=== PATIENT | male | born 1955 | race Caucasian/White ===

== ENCOUNTER 2018-03-22 13:30 | Inpatient (IN) | payer BC ==
[2018-03-27] MEDS ORDERED: ACETAMINOPHEN 1,000 MG/100 ML BTL IV ONE (06:00)
[2018-03-27] MEDS ORDERED: FAMOTIDINE 20MG TABLET PO ONE (06:00)
[2018-03-27] MEDS ORDERED: METOCLOPRAMIDE 10 MG TABLET PO ONE (06:00)
[2018-03-27] MEDS ORDERED: MECLIZINE 25 MG TABLET PO ONE (06:00)
[2018-03-27] MEDS ORDERED: CEFAZOLIN 2 Gram 2 GM/50 ML BAG IVPB ONE (06:00)
[2018-03-27] MEDS ORDERED: MAGNESIUM HYDROXIDE 30 ML UDC PO PRN (12:15)
[2018-03-27] MEDS ORDERED: TRAMADOL HCL 50 MG TABLET PO PRN (12:15)
[2018-03-27] MEDS ORDERED: ONDANSETRON HCL IV 4 MG/2 ML VIAL IVP PRN (12:15)
[2018-03-27] MEDS ORDERED: METOCLOPRAMIDE HCL 10 MG/2 ML VIAL IVP PRN (12:15)
[2018-03-27] MEDS ORDERED: DIPHENHYDRAMINE HCL 25 MG CAPSULE PO PRN (12:15)
[2018-03-27] MEDS ORDERED: AL HYDROX/MAG HYDROX 30ML UD PO PRN (12:15)
[2018-03-27] MEDS ORDERED: HYDROMORPHONE HCL 2 MG/ML VIAL IV PRN (12:15)
[2018-03-27] MEDS ORDERED: SENNOSIDES/DOCUSATE SODIUM UD CAPSULE PO PRN (12:15)
[2018-03-27] MEDS ORDERED: ZOLPIDEM TARTRATE 5 MG TABLET PO PRN (12:15)
[2018-03-27] MEDS ORDERED: OXYCODONE HCL 5 MG TABLET PO PRN (12:17)
[2018-03-27] MEDS ORDERED: RINGERS SOLUTION,LACTATED 1,000 ML IV PRN (12:27)
[2018-03-27] MEDS: OXYCODONE HCL 5 MG TABLET PO PRN ×3 (12:54→22:00)
[2018-03-27] MEDS: NICOTINE14 MG/24 HOUR PATCH TD SCH (12:57)
[2018-03-27] MEDS: RINGERS SOLUTION,LACTATED 1,000 ML IV SCH (13:20)
[2018-03-27] MEDS ORDERED: TRANEXAMIC ACID 1,000 MG in 0.9 % SODIUM CHLORIDE 100ML 100 ML IVPB ONE (15:00)
--- NOTE | 2018-03-27 15:10 | Operative Note ---
DATE OF SURGERY: 03/27/2018 Surgeon: Timbo Marino DO PREOPERATIVE DIAGNOSIS: Osteoarthritis of the left knee. POSTOPERATIVE DIAGNOSIS: Osteoarthritis of the left knee. OPERATION: Left total knee arthroplasty. DESCRIPTION OF PROCEDURE: This 62-year-old male was taken to the operating room and placed in the supine position on the operating room table. Spinal anesthesia was induced and the left lower extremity was elevated. It was prepped with Hibiclens and draped in the usual sterile fashion. It was exsanguinated and the tourniquet inflated to 300 mmHg. An anterior longitudinal midline incision was made followed by a medial parapatellar arthrotomy incision. An intracondylar drill hole was made for the intramedullary alignment crispin and a 10 mm 6-degree valgus cut was made in the distal femur. A sizing jig was affixed and a size 67.5 was seen to be the appropriate size. The 4-in-1 cutting block was then pinned in 3 degrees of external rotation and the appropriate cuts were made. The wafers of bone were removed. We then directed our attention to the proximal tibia, and an extramedullary alignment guide was used to cut the proximal tibia referencing a 10 mm cut off the lateral tibial plateau. Once the extramedullary alignment guide had been set and the block pinned in the appropriate position, a 3-degree posterior slope cut was made on the proximal tibia, and the wafers of bone were removed. Remnants of the menisci and osteophytes were removed from the posterior aspect of the joint. We did end up removing an additional 2 mm of bone from the proximal tibia because of some bone loss present. The patient had rather significant sclerosis of subchondral bone underneath the medial tibial plateau, and drill holes were made for penetration of the cement. The wound was copiously irrigated with lactated Ringer's solution and trial components were inserted; a 67.5 cruciate retaining femur, a 75 tibia, an 11 mm anterior stabilized bearing, and a 37 x 8.6 mm patella was used for trialing. The patella 37 x 8.6 restored the patella to anatomic height. The knee was taken through range of motion and excellent stability of the components was identified. All the trial components were then removed and the wound copiously irrigated with pulse lavage lactated Ringer's solution. Exparel was injected into the posterior, medial, and lateral corners of the joint. After insertion of all components, the remainder was injected into the periosteum and joint capsule of the proximal tibia and distal femur. The wound was irrigated and suctioned. All bony surfaces were dried. All components were cemented into place. Excess cement removed after the insertion of each component. Initially, the tibial baseplate was placed followed by insertion of the tibial bearing, femoral component, and finally the patella. Once the cement had hardened, the knee was again taken through range of motion with excellent stability of the components being identified. The wound was again irrigated with lactated Ringer's solution and a drain placed through a separate stab incision. The arthrotomy incision closed with #2 Vicryl, the subcutaneous tissue closed with 0 Vicryl, and the skin was stapled. Sterile dressings with a Polar Care were applied and the patient was taken to the recovery room in satisfactory condition. GROSS PATHOLOGY: This patient had advanced osteoarthritis especially of the medial compartment but severe degenerative disease of the lateral compartment was also noted and full-thickness articular cartilage loss of the patellofemoral joint also identified. 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 Final components inserted were a [employer] Vanguard 67.5 cruciate retaining femur, a 75 tibial, an 11 mm anterior stabilized A1 bearing, and a 37 x 8.6 mm patella. CC: DO SEGUNDO Baeza
[2018-03-27] MEDS ORDERED: TRANEXAMIC ACID 1,000 MG/10 ML ML IV ONE (15:17)
[2018-03-27] MEDS ORDERED: BUPIVACAINE LIPOSOME 266MG/20ML VIAL IV ONE (15:17)
[2018-03-27] MEDS ORDERED: BUPIVACAINE 0.25% W/EPI MPF 30ML VIAL IVP ONE (15:17)
[2018-03-27] MEDS: ACETAMINOPHEN 1,000 MG/100 ML BTL IV SCH ×2 (15:23→21:58)
--- NOTE | 2018-03-27 15:46 | Rehab Evaluation ---
Patient Information - Patient Information Diagnosis: L knee OA Ordered Treatment: PT Evaluate and Treat Status: Initial Evaluation Surgery: Yes (L TKA) Date of Surgery: 03/27/18 Past Medical/Surgical Hx: PAST MEDICAL/SURGICAL HISTORY Past Surgical History lt knee scope colonoscopy PMH - Respiratory Hx Respiratory Disorders No Hx Bronchitis Yes Hx Pneumonia Yes Hx Sleep Apnea Yes: possibly states he should have testing but hasnt Hx of SOB Yes: with exertion Comment: smokers cough. 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 PMH - Cardiovascular Hx Cardiovascular Disorders No Exercise Tolerance Fair PMH - Neuro Hx Neurological Disorders No PMH - GI Hx Gastrointestinal Disorders Yes PMH - Hx Genitourinary Disorders Yes Hx Kidney Stones Yes PMH - Endocrine Hx Endocrine Disorders No PMH - Musculoskeletal Hx Musculoskeletal Disorders Yes Hx Arthritis Yes PMH - Psych Hx Psychiatric Problems No PMH - Hematology/Oncology Hx Hematology/Oncology No Disorders Premorbid Status: Detail (Prior to surgery to patient was independent with mobility.) Social History: Detail (The patient lives with spouse in a one story house with 2 steps at the enterance.) Precautions: Angela, Fall, Other (WBAT on the L LE) - Time With Patient Total Time Spent With Patient (Min): 30 Treatment Procedures: Detail (Initial Evaluation, gait training) Subjective Information - Subjective Information Per Patient (The patient had complaints of level 8 pain in L knee using 0-10 pain scale.) Objective Data - Mental Status Patient Orientation: Oriented x3 - Visual Perception Appears within normal limits for therapeutic activities - ROM Not within normal limits (The patient's L knee AROM is limited as to be expected s/p surgery. All other LE strength AROM was WNL.) - Strength/Tone Not within normal limits (The patient's L LE strength was not tested secondary to s/p surgery, however was functional-patient was able to ambulate. The patient 's R LE strength was generally 4+ to 5/5.) - Bed Mobility Needs Assist (The patient required minimal PA to lift L LE only with supine to sit. Sit to supine was not tested secondary to patient stayed sitting in chair after PT treatment.) - Transfers Independent (The patient was independent with sit to and from stand transfer.) - Balance Balance Sitting: Good Balance Standing: Good - Sensation Intact - Gait Detail (The patient ambulated with 2 wheeled walker, WBAT on the L LE a distance of 60 feet x 1 independently for safety only and occasional verbal cues for proper technique. Patient requested to sit in chair and was left with call light in reach.) Therapy Assessment - Therapy Assessment Detail (The patient was independent with transfers and ambulation household distances. The patient required minimal PA to lift L LE wit supine to sit. Feel the patient will progress well with mobility.) Problem List - Problem List Physical Therapy Problem List: Detail (1) Decreased L knee AROM and strength as to be expected following surgery. 2) Non ambulatory on stairs) Goals - Goals Physical Therapy Goals: 1) The patient will be independent with HEP of TKA exercises. 2) The patient will ambulate on stairs with supervision for safety only using proper technique. 3) The patient will be independent with bed mobility. Prognosis - Prognosis Good Plan - Plan Physical Therapy Plan: PT 1-2 times a day until all PT goals are met for gait training on stairs, bed mobility and instruction in HEP.
[2018-03-27] MEDS ORDERED: ONDANSETRON HCL IV 4 MG/2 ML VIAL IVP ONE (16:15)
[2018-03-27] MEDS ORDERED: FENTANYL PF 100MCG/2ML VIAL IV ONE (16:15)
[2018-03-27] MEDS ORDERED: MIDAZOLAM HCL 2MG/2ML VIAL IV ONE (16:15)
[2018-03-27] MEDS ORDERED: PROPOFOL 10 MG/ML VIAL IV ONE (16:15)
[2018-03-27] MEDS ORDERED: LIDOCAINE 1% MDV (10MG/ML) 20ML VIAL SQ ONE (16:15)
[2018-03-27] MEDS: CEFAZOLIN 2 Gram 2 GM/50 ML BAG IVPB SCH (18:26)
[2018-03-27] MEDS: ASPIRIN 325 MG TAB ENTERIC-COATED PO SCH (21:59)
[2018-03-28] MEDS: CEFAZOLIN 2 Gram 2 GM/50 ML BAG IVPB SCH ×2 (02:34→12:14)
[2018-03-28] MEDS: OXYCODONE HCL 5 MG TABLET PO PRN (02:35)
[2018-03-28] MEDS: ACETAMINOPHEN 1,000 MG/100 ML BTL IV SCH (03:06)
[2018-03-28] MEDS: TRAMADOL HCL 50 MG TABLET PO PRN ×2 (05:25→12:05)
[2018-03-28] MEDS: RINGERS SOLUTION,LACTATED 1,000 ML IV SCH (05:57)
[2018-03-28 06:12] LABS: HEMATOCRIT 41.7 % (42.0-52.0); HEMOGLOBIN 13.5 gm/dl (14.0-18.0); MEAN CELL VOLUME 97.4 fl (81-97); MEAN CORPUSCULAR HEMOGLOBIN 31.5 pg (27-33); MEAN CORPUSCULAR HGB CONC 32.4 g/dl (32-36); MEAN PLATELET VOLUME 10.8 fl (7.4-10.4); PLATELET COUNT 159 K/uL (130-400); RED BLOOD COUNT 4.28 M/uL (4.40-5.70); RED CELL DISTRIBUTION WIDTH 13.4 % (11.5-14.5); WHITE BLOOD COUNT W/O DIFF 9.9 K/uL (4.2-12.2)
[2018-03-28] MEDS: ASPIRIN 325 MG TAB ENTERIC-COATED PO SCH (09:23)
[2018-03-28] MEDS: NICOTINE14 MG/24 HOUR PATCH TD SCH (09:23)
--- NOTE | 2018-03-28 09:26 | Physical Therapy Tx Note ---
Physical Therapy Tx Note - Treatment Note Tolerated: Good Total Time Spent With Patient: 25 Physical Therapy Tx Note: Detail (The patient was up in chair when PT arrived. The patient ambulated independently with 2 wheeled walker a distance of 108 feet x 1 WBAT on the R LE. The patient ambulated on 3 steps with supervision for safety only using proper technique with use of one railing and folded walker. The patient was independent with supine to and from sit transfer, using L leg to lift R. The patient completed the following LE exercises: heel slides seated and supine, gluteal sets, ankle pumps, quad sets, hamstring sets and assisted SLR ( with use of strap). The patient was independent with HEP and all mobility. The patient has completed all inpatient PT goals. Nursing staff was notified.) Physical Therapy Problem List: Detail (1) Decreased L knee AROM and strength as to be expected following surgery. 2) Non ambulatory on stairs) Physical Therapy Goals: GOALS MET: 1) The patient will be independent with HEP of TKA exercises. 2) The patient will ambulate on stairs with supervision for safety only using proper technique. 3) The patient will be independent with bed mobility. Physical Therapy Plan: The patient has met all inpatient goals and is discharged from inpatient PT. The patient will be receiving outpatient PT.
[2018-03-28] MEDS ORDERED: CELECOXIB 100 MG CAPSULE PO SCH (10:00)
--- NOTE | 2018-03-28 10:13 | Rehab Evaluation ---
Patient Information - Patient Information Diagnosis: L knee OA Ordered Treatment: OT Evaluate and Treat Status: Initial Evaluation Surgery: Yes (L TKA) Date of Surgery: 03/27/18 Past Medical/Surgical Hx: PAST MEDICAL/SURGICAL HISTORY Past Surgical History lt knee scope colonoscopy PMH - Respiratory Hx Respiratory Disorders No Hx Bronchitis Yes Hx Pneumonia Yes Hx Sleep Apnea Yes: possibly states he should have testing but hasnt Hx of SOB Yes: with exertion Comment: smokers cough. 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 PMH - Cardiovascular Hx Cardiovascular Disorders No Exercise Tolerance Fair PMH - Neuro Hx Neurological Disorders No PMH - GI Hx Gastrointestinal Disorders Yes PMH - Hx Genitourinary Disorders Yes Hx Kidney Stones Yes PMH - Endocrine Hx Endocrine Disorders No PMH - Musculoskeletal Hx Musculoskeletal Disorders Yes Hx Arthritis Yes PMH - Psych Hx Psychiatric Problems No PMH - Hematology/Oncology Hx Hematology/Oncology No Disorders Premorbid Status: Detail (Prior to surgery to patient was independent with mobility and I/ADL's) Social History: Detail (The patient lives with spouse in a one story house with 2 steps at the enterance. Bathroom has a standard toilet, and tub/shower combo with hand held shower head. Pt. has a stool to sit on in shower if needed. Spouse will be able to help if needed.) Precautions: Wat[place], Fall, Other (WBAT on the L LE) - Time With Patient Total Time Spent With Patient (Min): 15 Treatment Procedures: Detail (OT eval low. Session was concluded with pt. 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 30 degrees).) - Strength/Tone Within normal limits (BUE MMT 4+/5 all planes.) - Coordination Appears within normal limits for therapeutic activities - Transfers Independent (sit<>stand from arm chair) - Balance Balance Sitting: Good Balance Standing: Fair - ADL's/IADL's Detail (Pt. was dressed prior to session, and stated that he dressed Ind. with no difficulty. Pt. demo. ability to don and doff L shoe Ind. while seated. Pt. voiced concern for bathing LB at home; educ. was provided in use of long handled sponge if needed. Educ. was provided in adapting walker or cane handle d /t CTS, and in adaptive dressing techniques. Pt. verbalized understanding.) Therapy Assessment - Therapy Assessment Detail (No in-pt. OT services recommended at this time. Pt. has a positive support system and functional environmental set-up at home. Pt. was instructed to call rehab dept. if Q's arise after returning home.) Patient Education - Patient Education Teaching Topic: Equipment Use, Exercise/Activity Response: Return Demonstration, Verbalize Understanding Teaching Method: Discussion Teaching Recipient: Patient Barriers To Learning: None Problem List - Problem List Physical Therapy Problem List: Detail (1) Decreased L knee AROM and strength as to be expected following surgery. 2) Non ambulatory on stairs) Goals - Goals Physical Therapy Goals: GOALS MET: 1) The patient will be independent with HEP of TKA exercises. 2) The patient will ambulate on stairs with supervision for safety only using proper technique. 3) The patient will be independent with bed mobility. Prognosis - Prognosis Good Plan - Plan Physical Therapy Plan: The patient has met all inpatient goals and is discharged from inpatient PT. The patient will be receiving outpatient PT. Occupational Therapy Plan: D/C from in-pt. OT services.
[2018-03-28] MEDS ORDERED: ACETAMINOPHEN 325 MG TAB PO PRN (12:15)
[2018-03-28] MEDS ORDERED: HYDROCODONE/APAP 5/325MG TABLET PO PRN ×2 (12:17)
[2018-03-28] MEDS ORDERED: OXYCODONE HCL/APAP 5MG/325MG TABLET PO PRN ×2 (12:17)
--- NOTE | 2018-03-29 12:50 | Discharge Summary ---
DATE OF ADMISSION: 03/27/2018 DATE OF DISCHARGE: 03/28/2018 ADMITTING DIAGNOSIS: Osteoarthritis of the left knee. DISCHARGE DIAGNOSIS: Osteoarthritis of the left knee. OPERATIVE PROCEDURE: Elective left total knee arthroplasty. DESCRIPTION: This 62-year-old male was admitted to the hospital for elective total knee arthroplasty and tolerated the operative procedure well. The drain was removed the first postoperative day. He did not have any new complaints and showed no sign of DVT at the time of discharge. He will be discharged home after clearing physical therapy today. He is to wear his KUN hose during the day and remove them at night. He will have outpatient physical therapy. He is to take aspirin 325 mg daily. He was given a prescription for Motrin 800 mg 1 every 8 hours as necessary for pain and he was given 90, also Ultram 1 q.4 h. as necessary for pain, and he was given 60. [place] 5/325 mg, #40, 1 every 4 hours as necessary for pain. Routine wound care instructions were given. He was instructed to follow up in my office in 2 weeks. Should he have any problems prior to being seen, he was instructed to call my office. SEGUNDO
== END 2018-03-28 14:38 | disposition home or self-care (01) | DRG 470 ==
LOC: MEDSURG 03-27 09:00
PROVIDERS: ADMIT Orthopaedic Surgery; ATTEND Orthopaedic Surgery
PROC: 0SRD069 Replacement of Left Knee Joint with Oxidized Zirconium on Polyethylene Synthetic Substitute, Cemented, Open Approach (ICD-10-PCS; principal; 2018-03-27 11:00)
DX: M17.12 Unilateral primary osteoarthritis, left knee (principal)
CPT/HCPCS: 85025; 97110; 97530; J2405

== ENCOUNTER 2019-09-09 11:57 | Day surgery (SDC) | payer BC ==
[2019-09-09] MEDS ORDERED: PROPOFOL 10 MG/ML VIAL IV ONE (11:58)
[2019-09-09] MEDS ORDERED: LIDOCAINE 2% MDV (20MG/ML) 20ML VIAL IV ONE (11:58)
--- NOTE | 2019-09-09 17:30 | Operative Note ---
OPERATION: COLONOSCOPY to the cecum with cold snare polypectomy x1. INDICATION: Prior history of adenomatous polyps. The patient had multiple adenomas removed 3 years ago and returns at this time for surveillance. ANESTHESIA: Intravenous sedation was administered by the department of anesthesiology and included Diprivan titrated to effect. PROCEDURE: Following informed consent from this alert individual including a discussion of the risks and benefits of the procedure and an opportunity for the patient to ask questions, the patient was in the left lateral decubitus position. A digital rectal examination was performed. No masses were noted. No abnormalities detected. There was a palpable hypertrophied papilla. Following this, the Olympus [id number] video colonoscope was inserted into the rectum without resistance. The rectal mucosa had a normal appearance with normal folds and distensibility. The colonoscope was advanced up through the bowel to the level of the cecum without much difficulty. A few scattered diverticula were seen in the sigmoid colon. The cecum was defined by noting the appendiceal orifice and ileocecal valve. Overall the colon preparation was adequate. From the base of the cecum, the colonoscope was then slowly withdrawn. In the mid ascending colon, there was a sessile 6 mm polyp noted which was removed with cold snare polypectomy and suctioned through the colonoscope into a collection trap. No other changes were noted other than the diverticulosis seen above in the sigmoid region. Retroflexion in the rectum did reveal hypertrophied anal papilla. The endoscope was straightened and removed. The patient tolerated the procedure well and was returned to the recovery area in stable condition. IMPRESSION: 1. A 6 mm ascending colon polyp removed with cold snare polypectomy. 2. Sigmoid diverticulosis. 3. Hypertrophied anal papilla. RECOMMENDATIONS: Further recommendations will be forthcoming pending results of pathology obtained today. Followup will be with Dr. Tejada as well. As always, thank you for allowing me to participate in the care of your patient. SEGUNDO
== END 2019-09-09 14:40 | disposition home or self-care (01) ==
LOC: HOP 11:57
PROVIDERS: ATTEND Internal Medicine Gastroenterology
DX: Z12.11 Encounter for screening for malignant neoplasm of colon (principal); D12.2 Benign neoplasm of ascending colon; K57.30 Diverticulosis of large intestine without perforation or abscess without bleeding; K62.89 Other specified diseases of anus and rectum; E78.00 Pure hypercholesterolemia, unspecified; I10 Essential (primary) hypertension; F17.210 Nicotine dependence, cigarettes, uncomplicated